=== PATIENT | female | born 1985 | race Two or more races ===

== ENCOUNTER 2017-12-23 19:03 | Emergency (ER) | payer MEDICAID ==
[~2017-12-23] VITALS: Ht 160 cm; Wt 54.4 kg
[2017-12-23 19:20] VITALS: BP 103/64
[2017-12-23] MEDS ORDERED: DiphenhydrAMINE 50mg/ml Inj IVP ONE (19:30)
--- NOTE | 2017-12-23 19:54 | Emergency Room Report ---
History of Present Illness General Chief Complaint: Headache Source: Patient Present Illness HPI This patient states that she has had fever and chills. She states she's also been having right upper quadrant abdominal pain. She has had some congestion. She has also had a headache. She has been nauseated but no vomiting. She has a history of cholelithiasis. She has not had a cholecystectomy. She has a history of choledocho cholelithiasis that passed spontaneously. She denies chest pain or shortness of breath. She denies cough. She denies dysuria or hematuria. She has no other complaints. Allergies: Coded Allergies: No Known Allergies (Unverified , 12/23/17) Patient History Past Medical History: see triage record, other - cholelithiasis Social History: Denies: smoking, alcohol use, drug use Reviewed Nursing Documentation: PMH: Agreed; PSxH: Agreed Nursing Documentation-PMH Past Medical History: No History, Except For Review of Systems All Other Systems: negative except mentioned in HPI Physical Exam Vital Signs Date Time Temp Pulse Resp B/P (MAP) Pulse Ox O2 Delivery O2 Flow Rate FiO2 12/23/17 18:57 98.6 114 16 107/71 100 Room Air 98.6 Sp02 EP Interpretation: reviewed, normal General Appearance: no apparent distress, alert, GCS 15, non-toxic Head: normocephalic, atraumatic Eyes: bilateral eye normal inspection, bilateral eye PERRL ENT: hearing grossly normal, normal pharynx, no angioedema, normal voice Neck: full range of motion, supple/symm/no masses Respiratory: chest non-tender, lungs clear, normal breath sounds, no respiratory distress, no retraction, no accessory muscle use, speaking full sentences Cardiovascular #1: regular rate, rhythm, no edema Gastrointestinal: normal bowel sounds, soft, non-distended, no guarding, no rebound, tenderness - TTP in the RUQ and epigastrium Rectal: deferred Musculoskeletal: back normal, gait/station normal, normal range of motion, non- tender Neurologic: alert, oriented x3, responsive, motor strength/tone normal, sensory intact, speech normal Psychiatric: judgement/insight normal, memory normal, mood/affect normal, no suicidal/homicidal ideation Skin: normal color, no rash, warm/dry, well hydrated Medical Decision Making Diagnostic Impression: Primary Impression: Biliary colic Additional Impression: Cholelithiasis ER Course This patient presents with fever, abdominal pain and right upper quadrant tenderness with a history of cholelithiasis. Highest on my differential diagnosis was cholecystitis or choledocholithiasis. Laboratory workup did show an elevated white blood cell count. Therefore I felt that I should assess for cholecystitis. The patient underwent ultrasound of the right upper quadrant which showed cholelithiasis. There is no evidence of cholecystitis. I did offer the patient admission for cholecystectomy given the biliary colic. However, the patient declined stating she has personal commitments that she does not want to postpone. She states that she will follow-up with her primary care physician. The patient was educated on the signs and symptoms of cholecystitis and was given close return precautions and follow-up instructions. Laboratory Tests Test 12/23/17 19:40 12/23/17 19:55 Urine Color Pale yellow Urine Appearance Clear Urine pH 8 (4.5-8.0) Urine Specific Noonan 1.010 (1.005-1.035) Urine Protein 2+ (NEGATIVE) H Urine Glucose (UA) Negative (NEGATIVE) Urine Ketones 4+ (NEGATIVE) H Urine Occult Blood 3+ (NEGATIVE) H Urine Nitrite Negative (NEGATIVE) Urine Bilirubin Negative (NEGATIVE) Urine Urobilinogen Normal MG/DL (0.0-1.0) Urine Leukocyte Esterase 1+ (NEGATIVE) H Urine RBC 2-4 /HPF (0 - 2) H Urine WBC 0-2 /HPF (0 - 2) Urine Squamous Epithelial Cells Few /LPF (NONE/OCC) Urine Bacteria Occasional /HPF (NONE) White Blood Count 13.4 K/UL (4.8-10.8) H Red Blood Count 4.97 M/UL (4.20-5.40) Hemoglobin 14.1 G/DL (12.0-16.0) Hematocrit 42.2 % (37.0-47.0) Mean Corpuscular Volume 85 FL (80-99) Mean Corpuscular Hemoglobin 28.4 PG (27.0-31.0) Mean Corpuscular Hemoglobin Concent 33.5 G/DL (32.0-36.0) Red Cell Distribution Width 11.4 % (11.6-14.8) L Platelet Count 234 K/UL (150-450) Mean Platelet Volume 7.1 FL (6.5-10.1) Neutrophils (%) (Auto) 78.5 % (45.0-75.0) H Lymphocytes (%) (Auto) 13.7 % (20.0-45.0) L Monocytes (%) (Auto) 7.3 % (1.0-10.0) Eosinophils (%) (Auto) 0.1 % (0.0-3.0) Basophils (%) (Auto) 0.5 % (0.0-2.0) Sodium Level 137 MMOL/L (136-145) Potassium Level 3.6 MMOL/L (3.5-5.1) Chloride Level 103 MMOL/L (98-107) Carbon Dioxide Level 23 MMOL/L (21-32) Anion Gap 11 mmol/L (5-15) Blood Urea Nitrogen 8 mg/dL (7-18) Creatinine 0.7 MG/DL (0.55-1.30) Estimate Glomerular Filtration Rate > 60 mL/min (>60) Glucose Level 95 MG/DL (74-106) Calcium Level 8.9 MG/DL (8.5-10.1) Total Bilirubin 0.6 MG/DL (0.2-1.0) Aspartate Amino Transferase (AST) 27 U/L (15-37) Alanine Aminotransferase (ALT) 21 U/L (12-78) Alkaline Phosphatase 61 U/L (46-116) Total Protein 8.8 G/DL (6.4-8.2) H Albumin 4.1 G/DL (3.4-5.0) Globulin 4.7 g/dL Albumin/Globulin Ratio 0.9 (1.0-2.7) L Lipase 97 U/L (73-393) Human Chorionic Gonadotropin, Qual Negative CT/MRI/US Diagnostic Results CT/MRI/US Diagnostic Results : Imaging Test Ordered: US RUQ Last Vital Signs Date Time Temp Pulse Resp B/P (MAP) Pulse Ox O2 Delivery O2 Flow Rate FiO2 12/23/17 18:57 98.6 114 16 107/71 100 Room Air 98.6 Status: improved Disposition: HOME, SELF-CARE Condition: Improved DAX FAUSTIN D.O. December 23, 2017 19:54
[2017-12-23] MEDS ORDERED: Ketorolac 30mg Inj IV ONE (20:00)
[2017-12-23] MEDS ORDERED: Acetaminophen 500mg (ES) tab ORAL ONE (20:00)
[2017-12-23 20:16] LABS: BASOPHILS % (AUTO) 0.5 % (0.0-2.0); EOSINOPHILS % (AUTO) 0.1 % (0.0-3.0); HEMATOCRIT 42.2 % (37.0-47.0); HEMOGLOBIN 14.1 G/DL (12.0-16.0); LYMPHOCYTES % (AUTO) 13.7 % (20.0-45.0); MEAN CORPUSCULAR VOLUME 85 FL (80-99); MONOCYTES % (AUTO) 7.3 % (1.0-10.0); NEUTROPHILS % (AUTO) 78.5 % (45.0-75.0); PLATELET COUNT 234 K/UL (150-450); RED BLOOD COUNT 4.97 M/UL (4.20-5.40); RED CELL DISTRIBUTION WIDTH 11.4 % (11.6-14.8); WHITE BLOOD COUNT 13.4 K/UL (4.8-10.8)
[2017-12-23 20:17] LABS: APPEARANCE,URINE CLEAR; BILIRUBIN, URINE NEGATIVE (NEGATIVE); COLOR,URINE PALE YELLOW; GLUCOSE, URINE (UA) NEGATIVE (NEGATIVE); KETONES,URINE 4+ (NEGATIVE); LEUKOCYTE ESTERASE ,URINE 1+ (NEGATIVE); NITRITE,URINE NEGATIVE (NEGATIVE); PH,URINE 8 (4.5-8.0); PROTEIN,URINE 2+ (NEGATIVE); UROBILINOGEN,URINE NORMAL MG/DL (0.0-1.0)
[2017-12-23 20:34] LABS: ANION GAP 11 mmol/L (5-15); BLOOD UREA NITROGEN 8 mg/dL (7-18); CALCIUM 8.9 MG/DL (8.5-10.1); CARBON DIOXIDE 23 MMOL/L (21-32); CHLORIDE 103 MMOL/L (98-107); CREATININE 0.7 MG/DL (0.55-1.30); POTASSIUM 3.6 MMOL/L (3.5-5.1); SODIUM 137 MMOL/L (136-145)
[2017-12-23 20:40] LABS: ALANINE AMINOTRANSFERASE 21 U/L (12-78); ALBUMIN 4.1 G/DL (3.4-5.0); ALBUMIN/GLOBULIN RATIO 0.9 (1.0-2.7); ALKALINE PHOSPHATASE 61 U/L (46-116); ASPARTATE AMINO TRANSFERASE 27 U/L (15-37); BILIRUBIN,TOTAL 0.6 MG/DL (0.2-1.0)
[2017-12-23 21:10] VITALS: BP 107/66
[2017-12-23 22:50] VITALS: BP 110/68
[2017-12-23 22:55] VITALS: BP 110/68
--- NOTE | 2017-12-24 10:02 | Diagnostic Imaging Report ---
Indication: Right upper quadrant abdominal pain. Leukocytosis. Technique: Grayscale and duplex Doppler imaging of the abdomen performed. Comparison: None Findings: Gallstones are present. Sonographic Watson's is equivocal as the patient was medicated. No wall thickening or pericholecystic fluid are identified. The liver, demonstrated part of the pancreas, aorta and IVC, both kidneys, spleen appear unremarkable. There is no biliary ductal dilatation identified. Doppler evaluation of the main portal vein shows patency. There is no ascites. No hydronephrosis seen. Impression: Gallstones. Cholecystitis not excluded.
== END 2017-12-23 22:55 | disposition home or self-care (01) ==
LOC: EDBD 19:03 → EMR 19:46
DX: K80.50 Calculus of bile duct without cholangitis or cholecystitis without obstruction (principal); K80.20 Calculus of gallbladder without cholecystitis without obstruction
CPT/HCPCS: 36415; 76700; 80053; 81003; 83690; 84703; 85025; 96361; 96374; 99284; J1885

== ENCOUNTER 2020-05-16 12:00 | Emergency (ER) | payer MEDICAID ==
[~2020-05-16] VITALS: Ht 165.1 cm; Wt 59.0 kg
[2020-05-16 12:15] VITALS: BP 104/67
--- NOTE | 2020-05-16 12:15 | NUR ---
ED Nurse Note: Pt walked in to ED from home c/o n/v and diarrhea x 3 weeks. Pt is around 8 weeks and set to see an OBGYN for first appoint on 05/28. 4, Para 2. Pt is also c/o lower back pain. AAOx4, verbally responsive. No SOB, on room air. ERMD at bedside.
--- NOTE | 2020-05-16 12:30 | NUR ---
ED Nurse Note: IV line established. Blood and urine specimen collected, sent to lab.
--- NOTE | 2020-05-16 12:31 | Emergency Room Report ---
History of Present Illness General Chief Complaint: Vomiting Source: Patient Present Illness HPI Disclaimer: Please note that this report is being documented using DRAGON technology. This can lead to erroneous entry secondary to incorrect interpretation by the dictating instrument. HPI: 34-year-old at estimated 8 weeks gestation presents for evaluation of vomiting and abdominal pain. LMP March 22. Patient reports positive urine test. Complains of 3 weeks nausea, vomiting abdominal cramping worse in the morning though sometimes persistent throughout the day. Denies fever or chills. Denies dysuria, hematuria, vaginal bleeding, vaginal discharge, diarrhea or flank pain. History of gallstones as well but denies pain in the upper abdomen. Has not been taking any medication aside from vitamins. She noted hyperemesis gravidarum with her first 2 pregnancies and was taking 2 pills that she states were effective for her. Symptoms appear to be improving. She has not yet seen her PMD/AERODYNAMICS PROFESSOR. Scheduled visit for 05/30. PMH: Hyperemesis gravidarum PSH: Denies Allergies: Denied Social Hx: Denied Allergies: Coded Allergies: No Known Allergies (Unverified , 12/23/17) COVID-19 Screening Contact w/high risk pt: No Experienced COVID-19 symptoms?: No COVID-19 Testing performed FIRER HELPER: No Patient History Last Menstrual Period: 03/20/20 Now: Yes : 4 Para: 2 Nursing Documentation-PMH Past Medical History: No History, Except For Hx Gastrointestinal Problems: Yes - gall stones Review of Systems All Other Systems: negative except mentioned in HPI Physical Exam Vital Signs Date Time Temp Pulse Resp B/P (MAP) Pulse Ox O2 Delivery O2 Flow Rate FiO2 05/16/20 12:08 98.4 91 20 104/67 (79) 97 Room Air General: Awake and alert, no acute distress HEENT: NC/AT. EOMI. Cardiovascular: RRR. S1 and S2 normal. No murmur appreciated Resp: Normal work of breathing. No cough, wheezing or crackles appreciated Abdomen: Abdomen is soft, nondistended. Mild periumbilical tenderness without guarding, no masses, no rebound, no palpable deformity. No tenderness in the epigastrium or right upper quadrant. Negative Watson's. Skin: Intact. No abrasions, laceration or rash over the exposed skin MSK: Normal tone and bulk. Moving all extremities. No obvious deformity. Neuro: Awake and alert. Mentating appropriately. Medical Decision Making Diagnostic Impression: Primary Impression: Hyperemesis gravidarum Additional Impression: Cholelithiasis ER Course Is a 34-year-old -0-1-2 at estimated 8 weeks gestation presents for evaluation of vomiting and abdominal cramping. Differential includes not limi you to hyperemesis gravidarum, cholelithiasis, cholecystitis, choledocholithiasis, UTI, pyelonephritis, nephrolithiasis, gastritis, gastroenteritis, dehydration, ELISABET, ectopic , tubal ovarian abscess among others. Patient has not yet had follow-up on this but has been taking vitamins. States her symptoms are improving. IV fluids and antiemetics provided. 1400: Labs have returned within normal limits. Ultrasound of the abdomen shows cholelithiasis without evidence of acute cholecystitis. Hepatic labs within normal limits. OB ultrasound shows a single intrauterine without other pathology identified. Patient feeling improved. Discharged with Diclegis and will follow up with her OB at her scheduled appointment. Copies of labs and ultrasound results including discharge paperwork. She can follow-up with general surgery on an outpatient basis regarding gallstones but no evidence of cholecystitis at this time. Instructed to return with new or worsening symptom s. Laboratory Tests Test 05/16/20 12:30 White Blood Count 10.0 K/UL (4.8-10.8) Red Blood Count 4.69 M/UL (4.20-5.40) Hemoglobin 13.9 G/DL (12.0-16.0) Hematocrit 38.7 % (37.0-47.0) Mean Corpuscular Volume 82 FL (80-99) Mean Corpuscular Hemoglobin 29.7 PG (27.0-31.0) Mean Corpuscular Hemoglobin Concent 36.0 G/DL (32.0-36.0) Red Cell Distribution Width 11.6 % (11.6-14.8) Platelet Count 354 K/UL (150-450) Mean Platelet Volume 6.5 FL (6.5-10.1) Neutrophils (%) (Auto) 66.3 % (45.0-75.0) Lymphocytes (%) (Auto) 26.5 % (20.0-45.0) Monocytes (%) (Auto) 5.9 % (1.0-10.0) Eosinophils (%) (Auto) 0.5 % (0.0-3.0) Basophils (%) (Auto) 0.8 % (0.0-2.0) Prothrombin Time 11.9 SEC (9.30-11.50) H Prothrombin Time INR 1.1 (0.9-1.1) Activated Partial Thromboplast Time 28 SEC (23-33) Urine Color Pale yellow Urine Appearance Clear Urine pH 6.5 (4.5-8.0) Urine Specific Thayer 1.020 (1.005-1.035) Urine Protein Negative (NEGATIVE) Urine Glucose (UA) Negative (NEGATIVE) Urine Ketones 3+ (NEGATIVE) H Urine Blood 1+ (NEGATIVE) H Urine Nitrite Negative (NEGATIVE) Urine Bilirubin Negative (NEGATIVE) Urine Urobilinogen Normal MG/DL (0.0-1.0) Urine Leukocyte Esterase 2+ (NEGATIVE) H Urine RBC 0-2 /HPF (0 - 2) Urine WBC 0-2 /HPF (0 - 2) Urine Squamous Epithelial Cells Occasional /LPF Urine Bacteria Occasional /HPF (NONE) Sodium Level 137 MMOL/L (136-145) Potassium Level 3.3 MMOL/L (3.5-5.1) L Chloride Level 100 MMOL/L (98-107) Carbon Dioxide Level 23 MMOL/L (21-32) Anion Gap 15 mmol/L (5-15) Blood Urea Nitrogen 9 mg/dL (7-18) Creatinine 0.6 MG/DL (0.55-1.30) Estimated Glomerular Filtration Rate > 60 mL/min (>60) Glucose Level 85 MG/DL (74-106) Calcium Level 9.3 MG/DL (8.5-10.1) Total Bilirubin 0.5 MG/DL (0.2-1.0) Aspartate Amino Transferase (AST) 20 U/L (15-37) Alanine Aminotransferase (ALT) 13 U/L (12-78) Alkaline Phosphatase 44 U/L (46-116) L Total Protein 7.6 G/DL (6.4-8.2) Albumin 4.3 G/DL (3.4-5.0) Globulin 3.3 g/dL Albumin/Globulin Ratio 1.3 (1.0-2.7) Lipase 134 U/L (73-393) Human Chorionic Gonadotropin, Quant 343077 mIU/mL (1-6) H Last Vital Signs Date Time Temp Pulse Resp B/P (MAP) Pulse Ox O2 Delivery O2 Flow Rate FiO2 05/16/20 12:15 98.4 91 20 104/67 97 Room Air Disposition: HOME, SELF-CARE Condition: Stable Scripts Doxylamine/Pyridoxine Hcl (WINNIE SCHMITT 10-10 MG TABLET) 1 Each Tablet.dr 1 EACH PO Q6HR, #30 TAB Prov: Alfredo Biggs MD 05/16/20 Referrals: [facility],REFERRING (PCP) Alfredo Biggs MD May 16, 2020 12:31
--- NOTE | 2020-05-16 12:45 | NUR ---
ED Nurse Note: US at bedside
[2020-05-16 12:50] LABS: APPEARANCE,URINE CLEAR; BASOPHILS % (AUTO) 0.8 % (0.0-2.0); BILIRUBIN, URINE NEGATIVE (NEGATIVE); COLOR,URINE PALE YELLOW; EOSINOPHILS % (AUTO) 0.5 % (0.0-3.0); GLUCOSE, URINE (UA) NEGATIVE (NEGATIVE); HEMATOCRIT 38.7 % (37.0-47.0); HEMOGLOBIN 13.9 G/DL (12.0-16.0); KETONES,URINE 3+ (NEGATIVE); LEUKOCYTE ESTERASE ,URINE 2+ (NEGATIVE); LYMPHOCYTES % (AUTO) 26.5 % (20.0-45.0); MEAN CORPUSCULAR VOLUME 82 FL (80-99); MONOCYTES % (AUTO) 5.9 % (1.0-10.0); NEUTROPHILS % (AUTO) 66.3 % (45.0-75.0); NITRITE,URINE NEGATIVE (NEGATIVE); PH,URINE 6.5 (4.5-8.0); PLATELET COUNT 354 K/UL (150-450); PROTEIN,URINE NEGATIVE (NEGATIVE); RED BLOOD COUNT 4.69 M/UL (4.20-5.40); RED CELL DISTRIBUTION WIDTH 11.6 % (11.6-14.8); UROBILINOGEN,URINE NORMAL MG/DL (0.0-1.0)
[2020-05-16 12:58] LABS: INR 1.1 (0.9-1.1)
[2020-05-16 13:36] LABS: ANION GAP 15 mmol/L (5-15); BLOOD UREA NITROGEN 9 mg/dL (7-18); CALCIUM 9.3 MG/DL (8.5-10.1); CARBON DIOXIDE 23 MMOL/L (21-32); CHLORIDE 100 MMOL/L (98-107); CREATININE 0.6 MG/DL (0.55-1.30); POTASSIUM 3.3 MMOL/L (3.5-5.1); SODIUM 137 MMOL/L (136-145)
[2020-05-16 13:40] LABS: ALANINE AMINOTRANSFERASE 13 U/L (12-78); ALBUMIN 4.3 G/DL (3.4-5.0); ALBUMIN/GLOBULIN RATIO 1.3 (1.0-2.7); ALKALINE PHOSPHATASE 44 U/L (46-116); ASPARTATE AMINO TRANSFERASE 20 U/L (15-37); BILIRUBIN,TOTAL 0.5 MG/DL (0.2-1.0)
--- NOTE | 2020-05-16 13:40 | NUR ---
ED Nurse Note: Per US pt is 8 weeks and 1 day .
[2020-05-16] MEDS ORDERED: DICLEGIS DR 101 EACH PO (13:46)
--- NOTE | 2020-05-16 13:55 | NUR ---
ED Nurse Note: ERMD at bedside with pt.
[2020-05-16 14:15] VITALS: BP 110/72
--- NOTE | 2020-05-16 14:48 | Diagnostic Imaging Report ---
Indication: Abdominal pain, nausea, vomiting Technique: Mao-scale and duplex images of the upper abdomen were obtained Comparison: Findings: Gallbladder contains gallstones. No gallbladder wall thickening nor pericholecystic fluid Sonographic Watson's sign is negative. Common bile duct measures 3 mm in diameter. No intrahepatic biliary ductal dilatation. Liver demonstrates normal echogenicity, no focal abnormality. Portal vein and hepatic veins are patent. Pancreas is unremarkable. Spleen is unremarkable. Left kidney measures 10.7 cm in length. Right kidney measures 10.4 cm length. Both 12/23/2017 kidneys demonstrate normal echogenicity. There is no hydronephrosis. Left kidney demonstrates a hyperechoic 11 mm lesion in the interpolar region. This is not evident previously . Non-aneurysmal abdominal aorta . Impression: Cholelithiasis. Negative for dilated bile ducts 11 mm hyperechoic left renal interpolar region lesion. Not definitely identified previously. Appearance suggestive of a benign angiomyolipoma, but MRI or CT recommended to confirm. This was discussed by phone with Dr. Ha in the emergency room
--- NOTE | 2020-05-16 15:08 | Diagnostic Imaging Report ---
Indication: Pelvic pain and vomiting, positive test Technique: Transabdominal images of the pelvis. Doppler interrogation of the ovaries Comparison: none Findings: Uterus measures 10.8 cm in length by 7.7 cm AP. Within the endometrium, there is a gestational sac. This demonstrates a pole with a crown-rump length of 1.7 cm, corresponding to estimated gestational age of 8 weeks one day. No evidence of subchorionic hemorrhage. A yolk sac is also demonstrated. There is positive heart activity, heart rate 169 bpm. No free cul-de-sac fluid demonstrated. The right ovary cannot be visualized. The left ovary measures 2.7 cm length, demonstrates normal Doppler signal. Impression: A week one day, by crown-rump length measurement, single live intrauterine . No unusual features Note inability to visualize the right ovary
[2020-05-16 15:32] VITALS: BP 109/79
--- NOTE | 2020-05-16 15:32 | NUR ---
ER DISCHARGE NOTE: Patient is cleared to be discharged per ERMD, pt is aox4, on room air, with stable vital signs. pt was given dc instructions, pt was able to verbalize understanding, pt id band and iv site removed without complications. pt is able to ambulate with steady gait. pt took all belongings.
== END 2020-05-16 15:30 | disposition home or self-care (01) ==
LOC: EMR 12:16
DX: O21.0 Mild hyperemesis gravidarum (principal); O99.611 Diseases of the digestive system complicating pregnancy, first trimester; K80.20 Calculus of gallbladder without cholecystitis without obstruction; Z3A.08 8 weeks gestation of pregnancy
CPT/HCPCS: 36415; 76700; 76801; 80053; 81003; 83690; 84702; 85025; 85610; 85730; 86850; 86900; 86901; 96361; 96374; J2405; J7030; Z7502; 99284

== ENCOUNTER 2020-05-20 17:12 | Emergency (ER) | payer MEDICAID ==
[~2020-05-20] VITALS: Ht 165.1 cm; Wt 59.0 kg
[~2020-05-20 17:12] MED LIST: DICLEGIS DR 101 EACH PO
[2020-05-20] MEDS ORDERED: Metoclopramide 10mg/2ml Inj IVP ONE (17:30)
--- NOTE | 2020-05-20 17:40 | NUR ---
ED Nurse Note:pt. is about 6 weeks, c/o nausea vomiting and severe headache, no vaginal bleeding no abdominal pain, blood and urine sent to labs
[2020-05-20 17:54] LABS: APPEARANCE,URINE SLIGHTLY CLOUDY; BASOPHILS % (AUTO) 0.9 % (0.0-2.0); BILIRUBIN, URINE NEGATIVE (NEGATIVE); EOSINOPHILS % (AUTO) 1.1 % (0.0-3.0); GLUCOSE, URINE (UA) NEGATIVE (NEGATIVE); HEMATOCRIT 38.9 % (37.0-47.0); HEMOGLOBIN 13.3 G/DL (12.0-16.0); KETONES,URINE NEGATIVE (NEGATIVE); LEUKOCYTE ESTERASE ,URINE 2+ (NEGATIVE); LYMPHOCYTES % (AUTO) 26.6 % (20.0-45.0); MEAN CORPUSCULAR VOLUME 88 FL (80-99); MONOCYTES % (AUTO) 7.9 % (1.0-10.0); NEUTROPHILS % (AUTO) 63.6 % (45.0-75.0); NITRITE,URINE NEGATIVE (NEGATIVE); PH,URINE 6 (4.5-8.0); PLATELET COUNT 331 K/UL (150-450); PROTEIN,URINE NEGATIVE (NEGATIVE); RED BLOOD COUNT 4.43 M/UL (4.20-5.40); RED CELL DISTRIBUTION WIDTH 12.6 % (11.6-14.8); UROBILINOGEN,URINE NORMAL MG/DL (0.0-1.0); WHITE BLOOD COUNT 8.8 K/UL (4.8-10.8)
[2020-05-20 17:57] LABS: COLOR,URINE PALE YELLOW
--- NOTE | 2020-05-20 17:59 | Emergency Room Report ---
History of Present Illness General Chief Complaint: Complications Source: Patient (Dennis Smith) Present Illness HPI 34-year-old female who is G4, and reporting that her last menstrual period was March 20, 2020 and found out that she is few days ago here complaining of over 1 week of multiple bouts of emesis without any hematemesis. Denies diarrhea constipation. Denies any vaginal bleeding or spotting. Reports that she has been having return of the epigastric and right upper quadrant abdominal pain reports that she also has history of cholelithiasis times several years. Denies any fever and chills, loose stools, chest pain, shortness of breath. Reports that today she started feeling weak and dizzy. Has barely been able to keep any food down. Denies urinary symptoms. Patient was last seen in [place] [facility] 4 days ago and was diagnosed with hyper emesis gravidarum and was given Diclegis. Patient reports that Diclegis has not been helping her.Complains of a 3 out of 10 frontal headache without any photophobia, blurry vision, rhinorrhea (Dennis Smith) Allergies: Coded Allergies: No Known Allergies (Unverified , 12/23/17) COVID-19 Screening Contact w/high risk pt: No Experienced COVID-19 symptoms?: No COVID-19 Testing performed HOSPITAL SUPERVISOR: No (Dennis Smith) Patient History Past Medical History: see triage record Past Surgical History: none Pertinent Family History: none Last Menstrual Period: 03/20/20 Now: Yes : 3 Para: 2 Immunizations: UTD Reviewed Nursing Documentation: PMH: Agreed; PSxH: Agreed (Dennis Smith) Nursing Documentation-PMH Past Medical History: No History, Except For Hx Cardiac Problems: No Hx Hypertension: No Hx Pacemaker: No Hx Asthma: No Hx COPD: No Hx Diabetes: No Hx Cancer: No Hx Gastrointestinal Problems: Yes - gallstone Hx Dialysis: No History Of Psychiatric Problem: No Hx Neurological Problems: No Hx Cerebrovascular Accident: No Hx Seizures: No (Dennis Smith) Review of Systems All Other Systems: negative except mentioned in HPI (Dennis Smith) Physical Exam Vital Signs Date Time Temp Pulse Resp B/P (MAP) Pulse Ox O2 Delivery O2 Flow Rate FiO2 05/20/20 17:19 97.0 91 14 105/77 (86) 99 Room Air Sp02 EP Interpretation: reviewed, normal General Appearance: alert, GCS 15, non-toxic, mild distress Head: normocephalic, atraumatic Eyes: bilateral eye normal inspection, bilateral eye PERRL ENT: hearing grossly normal, normal pharynx, no angioedema, normal voice Neck: full range of motion, supple/symm/no masses Respiratory: chest non-tender, lungs clear, normal breath sounds, no rhonchi, no retraction, speaking full sentences Cardiovascular #1: regular rate, rhythm, no edema Cardiovascular #2: 2+ carotid (R), 2+ carotid (L), 2+ radial (R), 2+ radial (L), 2+ dorsalis pedis (R), 2+ dorsalis pedis (L) Gastrointestinal: non tender, no organomegaly, no peritonitis, no bruit, non- distended, guarding - Epigastric and right upper quadrant, Watson's negative Genitourinary: no CVA tenderness Musculoskeletal: back normal Neurologic: alert, motor strength/tone normal, oriented x3, sensory intact, responsive, speech normal Psychiatric: judgement/insight normal, memory normal, mood/affect normal, no suicidal/homicidal ideation Skin: no rash Lymphatic: no adenopathy (Dennis Smith) Medical Decision Making PA Attestation All diagnoses and treatment plans were reviewed and discussed with my supervising physician Dr. Mercado (Dennis Smith) Diagnostic Impression: Primary Impression: Hyperemesis gravidarum Additional Impressions: Cholelithiasis Subchorionic hemorrhage ER Course 34-year-old female who is G4, and reporting that her last menstrual period was March 20, 2020 and found out that she is few days ago here complaining of over 1 week of multiple bouts of emesis without any hematemesis. Denies diarrhea constipation. Denies any vaginal bleeding or spotting. Reports that she has been having return of the epigastric and right upper quadrant abdominal pain reports that she also has history of cholelithiasis times several years. Denies any fever and chills, loose stools, chest pain, shortness of breath. Reports that today she started feeling weak and dizzy. Has barely been able to keep any food down. Denies urinary symptoms. Patient was last seen in [place] [facility] 4 days ago and was diagnosed with hyper emesis gravidarum and was given Diclegis. Patient reports that Diclegis has not been helping her. Complains of a 3 out of 10 frontal headache without any photophobia, blurry vision, rhinorrhea Ddx considered but are not limited to: appendicitis, cholecystis, gastritis, gastroenteritis, UTI, pyelonephritis, abdominal pain during , ectopic , spontaneous , Vital signs: are WNL, pt. is afebrile H&PE are most consistent with: Cholelithiasis without cholecystitis, hyperemesis gravidarum, subchorionic hemorrhage ORDERS: CBC, CMP, UA, hCG quantitative, type and screen, lipase, CK, OB ultrasound, Reglan, Diclegis ED INTERVENTIONS: NS bolus, Reglan, Pepcid DISCHARGE: At this time pt. is stable for d/c to home. Will provide printed patient care instructions, and any necessary prescriptions. Care plan and follow up instructions have been discussed with the patient prior to discharge. Take medication as directed, follow-up with your MAT MAKER in 24 hours, if worsening symptoms return to the emergency room, you also have a bleeding subchorionic hemorrhage, you are at risk of threatened close monitoring by your MAT MAKER (Dennis Smith) ER Course Please see above note. Patient discussed in detail with PA. Agree with assessment and treatment plan. (Sp Mercado MD) CT/MRI/US Diagnostic Results CT/MRI/US Diagnostic Results #1: Imaging Test Ordered: OB ultrasound Impression 9 weeks, single intrauterine , bleeding subchorionic hemorrhage, otherwise within normal limits heart rate 161 CT/MRI/US Diagnostic Results #2: Imaging Test Ordered: Abdominal ultrasound Impression Cholelithiasis without cholecystitis (Dennis Smith) Last Vital Signs Date Time Temp Pulse Resp B/P (MAP) Pulse Ox O2 Delivery O2 Flow Rate FiO2 05/20/20 17:19 97.0 91 14 105/77 (86) 99 Room Air (Dennis Smith) Disposition: HOME, SELF-CARE Condition: Stable Scripts Metoclopramide Hcl* (REGLAN*) 5 Mg Tablet 5 MG ORAL EVERY 6 HOURS, #20 TAB Prov: Dennis Smith 05/20/20 Patient Instructions: Cholelithiasis, Glfy-he-Godn, Hyperemesis Gravidarum Additional Instructions: Take medication as directed, follow-up with your MAT MAKER in 24 hours, if worsening symptoms return to the emergency room, you also have a bleeding subchorionic hemorrhage, you are at risk of threatened close monitoring by your MAT MAKER Dennis Smith May 20, 2020 17:59 Sp Mercado MD May 21, 2020 01:45
[2020-05-20 18:04] LABS: ANION GAP 11 mmol/L (5-15); BLOOD UREA NITROGEN 10 mg/dL (7-18); CALCIUM 8.7 MG/DL (8.5-10.1); CARBON DIOXIDE 24 MMOL/L (21-32); CHLORIDE 100 MMOL/L (98-107); CREATININE 0.6 MG/DL (0.55-1.30); POTASSIUM 3.7 MMOL/L (3.5-5.1); SODIUM 135 MMOL/L (136-145)
[2020-05-20 18:09] LABS: ALANINE AMINOTRANSFERASE 18 U/L (12-78); ALBUMIN 4.1 G/DL (3.4-5.0); ALBUMIN/GLOBULIN RATIO 1.4 (1.0-2.7); ALKALINE PHOSPHATASE 43 U/L (46-116); ASPARTATE AMINO TRANSFERASE 28 U/L (15-37); BILIRUBIN,TOTAL 0.2 MG/DL (0.2-1.0); CREATINE KINASE 59 U/L (26-308)
--- NOTE | 2020-05-20 19:30 | NUR ---
ED Nurse Note: Recieved report from MAL Almaraz to resume care, pt in bed currently having bedside ultrasound, has patent IV site in left AC, fluids infusing, will resume care as ordered.
[2020-05-20 20:00] VITALS: BP 111/81
[2020-05-20] MEDS ORDERED: REGLAN5 MG ORAL (20:09)
--- NOTE | 2020-05-20 20:15 | NUR ---
ER DISCHARGE NOTE: Patient is cleared to be discharged per ERMD, pt is aox4, on room air, with stable vital signs. pt was given dc and prescription instructions, pt was able to verbalize understanding, pt id band and iv site removed without complications. pt is able to ambulate with steady gait. pt took all belongings.
[2020-05-20 20:20] VITALS: BP 105/77
--- NOTE | 2020-05-20 20:21 | Diagnostic Imaging Report ---
EXAM: US Abdomen Complete CLINICAL HISTORY: PAIN TECHNIQUE: Real-time ultrasound of the abdomen with image documentation. COMPARISON: 05/16/2020 FINDINGS: Liver: Measured at 13.1 cm. No mass. No intrahepatic bile duct dilation. Gallbladder: Gallstones. No wall thickening or pericholecystic fluid. Common bile duct: Common bile duct measures up to 4 mm. No stones. No dilation. Pancreas: Unremarkable as visualized. Kidneys: 10 mm echogenic structure seen within the left kidney. No stones. No hydronephrosis. Spleen: Measures up to 9.6 cm. No splenomegaly. Aorta: Unremarkable. No aneurysm. Inferior vena cava: Unremarkable. IMPRESSION: 1. Gallstones. No evidence of acute cholecystitis. 2. 10 mm echogenic structure seen within the left kidney. Findings are nonspecific and may represent an angiomyolipoma. In the absence of prior imaging, consider nonemergent CT or MRI for further evaluation.
--- NOTE | 2020-05-21 09:31 | Diagnostic Imaging Report ---
EXAM: US , Transvaginal CLINICAL HISTORY: PAIN TECHNIQUE: Real-time transvaginal obstetrical ultrasound of the maternal pelvis and a first trimester with image documentation. Transvaginal imaging was used for better evaluation of the fetus and adnexa. COMPARISON: OB ultrasound May 16, 2020 FINDINGS: Single, live intrauterine with an estimated gestational age of 9 weeks 2 days. This predicts an estimated delivery date of December 21, 2020. heart rate is documented at 169 bpm. Small fluid collection adjacent to the gestational sac, measuring 2.7 cm, which may represent old subchorionic hemorrhage. Note, this was not present on the prior study from 5 days ago. Follow-up OB ultrasound recommended in 2-4 weeks to reassess. The right ovary measures 3.8 x 2.3 x 1.9 cm. Normal color flow and Doppler interrogation. Right ovarian cyst measuring 2.2 x 2.1 x 2.1 cm, which may represent a corpus luteum cyst. The left ovary measures 2.4 x 1.3 x 1.3 cm. Normal color flow and Doppler interrogation. IMPRESSION: Single, live intrauterine with an estimated gestational age of 9 weeks 2 days. Estimated delivery date: December 21, 2020. heart rate: 169 bpm. Small fluid collection adjacent to the gestational sac, measuring 2.7 cm, which may represent old subchorionic hemorrhage. Note, this was not present on the prior study from 5 days ago. Follow-up OB ultrasound recommended in 2-4 weeks to reassess.
== END 2020-05-20 20:20 | disposition home or self-care (01) ==
LOC: EMR 17:30
DX: O21.0 Mild hyperemesis gravidarum (principal); O99.611 Diseases of the digestive system complicating pregnancy, first trimester; K80.20 Calculus of gallbladder without cholecystitis without obstruction; O46.91 Antepartum hemorrhage, unspecified, first trimester; Z3A.09 9 weeks gestation of pregnancy; O34.81 Maternal care for other abnormalities of pelvic organs, first trimester; N83.201 Unspecified ovarian cyst, right side
CPT/HCPCS: 36415; 76700; 76801; 76817; 80053; 81003; 82550; 83690; 84484; 84702; 85025; 86850; 86900; 86901; 93005; 96361; 96374; 96375; J2765; J7030; S0028; Z7502; 99284